=== PATIENT | male | born 1950 | race Two or more races ===

== ENCOUNTER 2022-12-18 07:16 | Outpatient (CLI) | payer OTHER | END 2022-12-18 07:23 | disposition home or self-care (01) | LOC: NUCLEAR 07:16 | PROVIDERS: ATTEND Internal Medicine | DX: I25.119 Atherosclerotic heart disease of native coronary artery with unspecified angina pectoris (principal); I71.40 Abdominal aortic aneurysm, without rupture, unspecified; I11.9 Hypertensive heart disease without heart failure; E78.2 Mixed hyperlipidemia | CPT/HCPCS: 78452; 93017; A9500; J0153 ==